=== PATIENT | female | born 1965 ===

== ENCOUNTER 2021-02-24 09:46 | Inpatient (IN) | payer OTHER ==
[~2021-02-24] VITALS: Ht 170.2 cm; Wt 90.7 kg
[2021-02-24] MEDS ORDERED: DEXILANT60 MG PO (09:58)
[2021-02-24] MEDS ORDERED: ACIPHEX20 MG PO (09:58)
[2021-02-24] MEDS ORDERED: STEGLATRO15 MG PO (09:59)
[2021-02-24] MEDS ORDERED: PEPCID AC20 MG PO (09:59)
[2021-02-24] MEDS ORDERED: FORTAMET500 MG PO (09:59)
[2021-02-24] MEDS ORDERED: GLYCOPYRROLATE2 MG PO (10:00)
[2021-02-24] MEDS ORDERED: CARAFATE1 GM/10 ML PO (10:00)
--- NOTE | 2021-02-24 10:00 | NUR ---
SE RECIBE PACIENTE ALERTA Y ORIENTADA. PACIENTE REFIERE TENER DOLOR ABDOMINAL DALJIT EL CUAL LE EMPEZO HOY EN LA MANANA, MARIANO LLEVA CON MOLESTIA HACE 2 SEMANAS. LA MISMA VERBALIZA TENER VOMITOS Y GASES.
--- NOTE | 2021-02-24 10:32 | NUR ---
PTE EVALUADO POR EL DR ZACARIAS QUIEN ORDENA EL [place]. MR Jasper ELVI ORIENTA SOBRE EL TX ORDENADO, LO CUAL REFIERE ENTENDER, REALIZA PRUEBAS DE LABORATORIO Y ADMINISTRA MEDICAMENTOS TWYLA ORDEN MEDICA Y SIGUINDO MEDIDAS ASEPTICAS. CT CANCELADO POR DR ZACARIAS, REFIERE YA TIENE UN CT RECIENTE.
[2021-02-28] MEDS ORDERED: INTESTINEX680 M1 PO (11:49)
[2021-02-28] MEDS ORDERED: Neurin-Sl Tablet Sl SL (11:50)
[2021-02-28] MEDS ORDERED: DICY20TA PO (11:50)
[2021-02-28] MEDS ORDERED: INTEGRA F CAPS1 EACH PO (11:51)
== END 2021-02-28 14:47 | disposition home or self-care (01) | DRG 392 ==
LOC: ER 09:46 → SURH 15:36
PROVIDERS: ADMIT Surgery; ATTEND Surgery
PROC: 02HV33Z Insertion of Infusion Device into Superior Vena Cava, Percutaneous Approach (ICD-10-PCS; principal; 2021-02-25)
PROC: BW2110Z Computerized Tomography (CT Scan) of Abdomen and Pelvis using Low Osmolar Contrast, Unenhanced and Enhanced (ICD-10-PCS; 2021-02-26)
PROC: BG44ZZZ Ultrasonography of Thyroid Gland (ICD-10-PCS; 2021-02-27)
DX: K57.32 Diverticulitis of large intestine without perforation or abscess without bleeding (principal); E05.80 Other thyrotoxicosis without thyrotoxic crisis or storm; E07.81 Sick-euthyroid syndrome; R94.6 Abnormal results of thyroid function studies; E11.65 Type 2 diabetes mellitus with hyperglycemia; D64.9 Anemia, unspecified; E66.9 Obesity, unspecified; Z68.31 Body mass index [BMI] 31.0-31.9, adult; Z20.822 Contact with and (suspected) exposure to COVID-19

== ENCOUNTER 2021-07-27 06:12 | Day surgery (SDC) | payer OTHER ==
[~2021-07-27] VITALS: Ht 165.1 cm; Wt 96.2 kg
[~2021-07-27 06:12] MED LIST: ACIPHEX20 MG PO; CARAFATE1 GM/10 ML PO; DEXILANT60 MG PO; DICY20TA PO; FORTAMET500 MG PO; GLYCOPYRROLATE2 MG PO; INTEGRA F CAPS1 EACH PO; INTESTINEX680 M1 PO; Neurin-Sl Tablet Sl SL; PEPCID AC20 MG PO; STEGLATRO15 MG PO; TAPAZOLE10 MG PO
[2021-07-27] MEDS ORDERED: PERCOCET 5-3251 EACH PO (08:54)
[2021-07-27] MEDS ORDERED: DEXILANT60 MG PO (08:54)
[2021-07-27] MEDS ORDERED: ZOFRAN4 MG PO (08:55)
== END 2021-07-27 12:05 | disposition home or self-care (01) ==
LOC: CIR.AMB 06:12 → SURH 11:30 → EDSTATUS 11:30 → CIR.AMB 12:05
PROVIDERS: ATTEND Surgery
DX: K81.1 Chronic cholecystitis (principal); Z20.822 Contact with and (suspected) exposure to COVID-19